=== PATIENT | female | born 2000 | race Caucasian/White ===

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

== ENCOUNTER 2021-06-10 16:27 | Inpatient (IN) | payer MEDICAID ==
[~2021-06-10] VITALS: Ht 167.6 cm; Wt 80.6 kg
[2021-06-10] VITALS (7 sets, daily range): BP systolic 103–125; BP diastolic 59–78
[~2021-06-10 16:27] MED LIST changes: +IBUP-1027 PO
[2021-06-10] MEDS ORDERED: 0.9 % SODIUM CHLORIDE 10 ML DISP.SYRIN. IV PRN (16:45)
[2021-06-10] MEDS ORDERED: LIDOCAINE 1% PF 30 ML VIAL. INJ PRN (16:45)
[2021-06-10] MEDS ORDERED: TERBUTALINE 1 MG/ML VIAL. SQ PRN (16:45)
[2021-06-10] MEDS ORDERED: IV RINGERS,LACTATED 1000ML 1,000 ML IV SCH (16:45)
[2021-06-10] MEDS ORDERED: OXYTOCIN 30 UNIT/500 ML PREMIX 500 ML IV PRN ×2 (16:45)
--- NOTE | 2021-06-10 17:05 | PDOC ---
GENERAL General: 20yrs old lady 39 weeks came by [facility] and Delivered Baby rapidly. ALLERGIES Allergies: Allergies Coded Allergies Type Severity Reaction Last Updated Verified No Known Drug Allergies 09/15/19 No ASSESSMENT & PLAN A&P 20 yrs old lady 39 weeks came by Ambulance and Delivered Baby rapidly An alive Female baby delivered with Apgars 8/9/9. No problems. Justifications for Admission Other Justification TANNER CORRAL MD Jun 10, 2021 17:05
[2021-06-10 17:15] LABS: BASO % 0 % (0-3); EOS # 0.1 x10^3/uL (0.0-0.7); EOS % 0 % (0-3); HEMATOCRIT 34.4 % (36.0-47.0); HEMOGLOBIN 11.3 g/dL (12.0-15.5); LYMPH # 2.6 x10^3/uL (1.0-4.8); LYMPH % 15 % (24-48); MEAN CORPUSCULAR HEMOGLOBIN 25 pg (25-35); MEAN CORPUSCULAR HGB CONC 33 g/dL (31-37); MEAN CORPUSCULAR VOLUME 75 fL (79-100); MONO % 6 % (0-9); NEUT # 13.8 x10^3/uL (1.8-7.7); NEUT % 79 % (31-73); PLATELET COUNT 247 x10^3/uL (140-400); RED BLOOD COUNT 4.59 x10^6/uL (3.50-5.40); RED CELL DISTRIBUTION WIDTH 17.6 % (11.5-14.5); WHITE BLOOD COUNT 17.5 x10^3/uL (4.0-11.0)
[2021-06-10] MEDS ORDERED: oxyCODONE/APAP 5/325 1 TAB TABLET PO PRN (17:15)
[2021-06-10] MEDS ORDERED: ZOLPIDEM 5 MG TABLET. PO PRN (17:15)
[2021-06-10] MEDS ORDERED: ACETAMINOPHEN 325 MG TABLET. PO PRN (17:15)
[2021-06-10] MEDS ORDERED: SIMETHICONE 80 MG TAB.CHEW PO PRN (17:15)
[2021-06-10] MEDS ORDERED: TDaP (Adacel) per PROTOCOL. MC PRN (17:15)
[2021-06-10] MEDS ORDERED: MMR per PROTOCOL. MC PRN (17:15)
[2021-06-10] MEDS ORDERED: diphenhydrAMINE HCL 25 MG CAPSULE PO PRN (17:15)
[2021-06-10] MEDS ORDERED: MAG HYDROX/ALUMINUM HYD/SIMETH 30 ML ORAL.SUSP PO PRN (17:15)
[2021-06-10] MEDS ORDERED: DOCUSATE SODIUM 100 MG CAPSULE. PO PRN (17:15)
[2021-06-10] MEDS ORDERED: PHENYLEPH/MINERAL OIL/PETROLAT RECTAL OINTMENT TUBE. RC PRN (17:15)
[2021-06-10] MEDS ORDERED: MAGNESIUM HYDROXIDE 2,400 MG/30 ML ORAL.SUSP. PO PRN (17:15)
[2021-06-10] MEDS ORDERED: PREN1TAB58 PO (17:38)
[2021-06-10] MEDS ORDERED: FERR325T14 PO (17:39)
[2021-06-10] MEDS: IBUPROFEN 400 MG TABLET. PO PRN (18:30)
--- NOTE | 2021-06-10 19:47 | OP ---
DATE OF SURGERY: 06/10/2021 DELIVERY NOTE INDICATIONS: This patient is 20 years old white female who is a 3, para 1, EDC 39 weeks' , came by ambulance to the hospital and had a precipitous delivery and a live female infant delivered at 1624 hours with good scores. The cord was clamped and cut. Placenta, spontaneous delivery at 1628 without any problem and she did have a second-degree laceration of the perineum. This was sutured with 2-0 chromic catgut sutures and estimated blood loss about 100 mL The baby appears to be doing fine and is referred to mobility scooter repairer for further care and treatment. Mother has tolerated the delivery well. No complications at this time. LORNA DR: Claudia TID: [id number]
[2021-06-10] MEDS ORDERED: BENZOCAINE 20% TOPICAL AEROSOL SPRAY 57GM CAN. TP PRN (20:45)
[2021-06-11 04:11] VITALS: BP 111/56
[2021-06-11] MEDS ORDERED: FERROUS SULFATE 325 MG TABLET. PO SCH (08:00)
[2021-06-11 08:02] VITALS: BP 116/71
[2021-06-11] MEDS: IBUPROFEN 400 MG TABLET. PO PRN ×2 (08:02→16:40)
[2021-06-11] MEDS ORDERED: FLU VACC QUAD 21-22 (6MOS+) PF 0.5 ML SYRINGE. VAX IM ONE (11:00)
[2021-06-11] MEDS ORDERED: MEASLES, MUMPS & RUBELLA VACC 0.5 ML VIAL. VAX SQ ONE (11:00)
--- NOTE | 2021-06-11 11:46 | PDOC ---
GENERAL General: Patient doing ok. No problems. VITAL SIGNS Vital Signs/I&O: Vital Signs Date Time Temp Pulse Resp B/P (MAP) Pulse Ox O2 Delivery O2 Flow Rate FiO2 06/11/21 08:02 97.9 67 20 116/71 (86) 99 97.9 06/11/21 07:50 Room Air I & O 06/10/21 06/10/21 06/11/21 14:59 22:59 06:59 Intake Total 1120 ml Balance 1120 ml ALLERGIES Allergies: Allergies Coded Allergies Type Severity Reaction Last Updated Verified rosado Allergy Severe Anaphylaxis 06/10/21 Yes rosado flavor Allergy Severe Anaphylaxis 06/10/21 Yes MEDS Medications: Current Medications Medications (Trade) Dose Ordered Sig/Esteban Route PRN Reason Start Time Stop Time Status Last Admin Dose Admin Ringer's Solution 1,000 ml @ 125 mls/hr Q8H IV 06/10/21 16:45 06/11/21 08:04 DC 06/10/21 17:34 Lidocaine HCl (Xylocaine 1% Pf 30ml Vial) 30 ml 1X PRN PRN INJ SEE COMMENTS 06/10/21 16:45 06/12/21 16:44 06/10/21 17:36 Oxytocin 500 ml @ 0 mls/hr CONT PRN IV SEE I/O RECORD 06/10/21 16:45 06/10/21 17:35 Ibuprofen (Motrin) 800 mg PRN Q6HRS PRN PO PAIN 06/10/21 16:45 06/11/21 08:02 Docusate Sodium (Colace) 100 mg PRN BID PRN PO constipation 06/10/21 17:15 06/11/21 08:02 Ferrous Sulfate (Feosol) 325 mg BIDWMEALS PO 06/11/21 08:00 06/11/21 10:46 DC 06/11/21 08:02 Oxycodone/ Acetaminophen (Percocet 5/325) 2 tab PRN Q4HRS PRN PO MODERATE PAIN, SEVERE PAIN 06/10/21 17:15 06/10/21 23:11 Measles/Mumps/ Rubella Vaccine Live (M-M-R Ii Vaccine With Diluent) 0.5 ml ONCE ONCE VAX SQ 06/11/21 11:00 06/11/21 11:01 DC 06/11/21 10:31 Influenza Virus Vaccine Quadrival (Flulaval Quad [id number] Syringe) 0.5 ml ONCE ONCE VAX IM 06/11/21 11:00 06/11/21 11:01 DC 06/11/21 10:24 LAB Lab: Laboratory Tests Test 06/10/21 16:30 06/10/21 17:46 06/11/21 07:25 White Blood Count 17.5 x10^3/uL (4.0-11.0) H Red Blood Count 4.59 x10^6/uL (3.50-5.40) Hemoglobin 11.3 g/dL (12.0-15.5) L Hematocrit 34.4 % (36.0-47.0) L 30.5 % (36.0-47.0) L Mean Corpuscular Volume 75 fL (79-100) L Mean Corpuscular Hemoglobin 25 pg (25-35) Mean Corpuscular Hemoglobin Concent 33 g/dL (31-37) Red Cell Distribution Width 17.6 % (11.5-14.5) H Platelet Count 247 x10^3/uL (140-400) Neutrophils (%) (Auto) 79 % (31-73) H Lymphocytes (%) (Auto) 15 % (24-48) L Monocytes (%) (Auto) 6 % (0-9) Eosinophils (%) (Auto) 0 % (0-3) Basophils (%) (Auto) 0 % (0-3) Neutrophils # (Auto) 13.8 x10^3/uL (1.8-7.7) H Lymphocytes # (Auto) 2.6 x10^3/uL (1.0-4.8) Monocytes # (Auto) 1.0 x10^3/uL (0.0-1.1) Eosinophils # (Auto) 0.1 x10^3/uL (0.0-0.7) Basophils # (Auto) 0.0 x10^3/uL (0.0-0.2) Treponema pallidum Antibody Nonreactive (Nonreactive) SARS-CoV-2 RNA (ALEXSANDRA) Negative (Negative) SARS-CoV-2 Antigen (Rapid) Negative (NEGATIVE) Laboratory Tests 06/10/21 16:30 06/11/21 07:25 ASSESSMENT & PLAN A&P Vital signs stable. Uterus firm. Lochia normal. Justifications for Admission Other Justification TANNER CORRAL MD Jun 11, 2021 11:46
--- NOTE | 2021-06-11 11:50 | NUR ---
Dr. Clements completed daily patient rounds and assessments. Informed MD of patients occasional cough. VOV per DR. Clements if patient desires she may have cough syrup, pt declines cough med order when offered.
[2021-06-11 12:05] VITALS: BP 109/62
[2021-06-11 16:47] VITALS: BP 114/65
[2021-06-12] MEDS: IBUPROFEN 400 MG TABLET. PO PRN ×2 (00:02→13:24)
[2021-06-12 00:04] VITALS: BP 110/75
[2021-06-12 06:04] VITALS: BP 96/52
[2021-06-12 08:54] VITALS: BP 111/70
[2021-06-12] MEDS ORDERED: DOCU-109 PO (12:15)
[2021-06-12] MEDS ORDERED: IBUP-1060 PO (12:15)
--- NOTE | 2021-06-12 13:24 | PDOC ---
LIBRARY DIRECTOR PROGRESS NOTE Date of Service: DATE: 06/12/21 TIME: 13:24 Subjective: Pt with good pain control. Larry PO. Voiding. Minimal lochia Objective: Vital Signs: Vital Signs Date Time Temp Pulse Resp B/P (MAP) Pulse Ox O2 Delivery O2 Flow Rate FiO2 06/11/21 07:50 Room Air 06/11/21 08:02 97.9 67 20 116/71 (86) 99 97.9 Vital Signs Date Time Temp Pulse Resp B/P (MAP) Pulse Ox O2 Delivery O2 Flow Rate FiO2 06/12/21 08:54 98.1 66 18 111/70 (84) Room Air 98.1 06/12/21 06:04 100 Physical Exam: GENERAL: No apparent distress. Alert and oriented. HEENT: Head normocephalic, atraumatic. NECK: Supple LUNGS: Clear to auscultation. HEART: RRR, S1, S2 present, pulses intact ABDOMEN: Soft, positive bowel sounds. EXTREMITIES: No cyanosis or edema. NEUROLOGIC: Normal speech, normal tone PSYCHIATRIC: Normal affect, normal mood. SKIN: No ulceration. FFNT below umb No C/C/E Assessment & Plan: A/P 20y PPD #2 s/p 1.) PP doing well 2.) H/o ITP - Plt nml (247) 3.) Asthma - improved control 4.) CF carrier - unknown partner CF status 5.) Anemia - Hgb 11.3 -> 10, on Fe BID 6.) Rub NI MMR given 7.) Tob use - discussed cessation 8.) TDAP given 04/03/21 9.) D/c home MATTHEW ABRAHAM MD Jun 12, 2021 13:24
--- NOTE | 2021-06-12 14:01 | DS ---
DATE OF DISCHARGE: 06/12/2021 ADMISSION DIAGNOSES: 1. Intrauterine at 39 weeks and 0 days by 23-week ultrasound. 2. Active labor. 3. Atypical pneumonia during the . 4. History of idiopathic thrombocytopenic purpura. 5. Asthma. 6. Late presentation to care. 7. Cystic fibrosis carrier. 8. Anemia. 9. Rubella nonimmune. 10. Tobacco use. 11. Status post Tdap. 12. GBS pending. DISCHARGE DIAGNOSES: 1. Intrauterine at 39 weeks and 0 days by 23-week ultrasound. 2. Active labor. 3. Atypical pneumonia during the . 4. History of idiopathic thrombocytopenic purpura. 5. Asthma. 6. Late presentation to care. 7. Cystic fibrosis carrier. 8. Anemia. 9. Rubella nonimmune. 10. Tobacco use. 11. Status post Tdap. 12. GBS pending. PROCEDURE: Spontaneous vaginal delivery. BRIEF HOSPITAL COURSE: The patient is a 20-year-old 3, para 1-0-1-1, who presented to Labor and Delivery at 39 weeks and 0 days by 23-week ultrasound in active labor. The patient was being brought in by ambulance and delivered shortly after reaching the floor. The patient did well with delivery. See delivery note for full detail. By day #2, the patient was meeting all discharge criteria and was subsequently discharged home. Of note, the patient's hemoglobin on admission was 11.3 and after delivery, was found to be 10.0. The patient was also given the MMR vaccine prior to discharge. DISCHARGE INSTRUCTIONS: The patient was told not to lift anything greater than 20 pounds, have pelvic rest for 6 weeks. CALL IF: The patient is to call if she had fevers, chills, nausea, vomiting, abdominal pain or any additional questions or concerns. FOLLOWUP APPOINTMENT: The patient is to follow up on 07/24/2021 at 1:30 p.m. in [place] for a visit. DISCHARGE MEDICATIONS: The patient was given a prescription for Motrin 800 mg, 30 pills and Colace 100 mg, [address]: Alicia TID: [id number]
--- NOTE | 2021-06-12 14:47 | NUR ---
Pt. was given verbal and written discharge instruction. Pt. verbalized understanding without any questions or concerns. Pt. verbalized understanding about follow appointment. VSS.
--- NOTE | 2021-06-19 16:52 | HP ---
ADMIT DATE: 06/10/2021 CHIEF COMPLAINT AND HISTORY OF PRESENT ILLNESS: This patient is a 20 years old white female who is a 3, para 1, EDC about 39 weeks of , admitted to the hospital because she was brought by ambulance and had a precipitous delivery in the bed in the hospital. Live female infant delivered at 1824 hours with good scores. OBJECTIVE: VITAL SIGNS: Stable. HEAD, EYES, EARS, NOSE AND THROAT: Within normal limits. LUNGS: Clear. CARDIAC: Heart sounds, regular sinus rhythm. ABDOMEN: Soft and uterus firm. The placenta has been delivered immediately right after the baby and no hemorrhage noted. EXTREMITIES: No edema of feet. IMPRESSION: 3, para 1, precipitous vaginal delivery. PLAN: Admission for further care and treatment. ESTEBAN/SAHIL DR: Claudia TID: [id number]
== END 2021-06-12 15:53 | disposition home or self-care (01) | DRG 807 ==
LOC: 3 SO LND 16:27
PROVIDERS: ADMIT Obstetrics & Gynecology; ATTEND Obstetrics & Gynecology
PROC: 10E0XZZ Delivery of Products of Conception, External Approach (ICD-10-PCS; principal; 2021-06-10)
PROC: 0KQM0ZZ Repair Perineum Muscle, Open Approach (ICD-10-PCS; 2021-06-10)
PROC: 3E0134Z Introduction of Serum, Toxoid and Vaccine into Subcutaneous Tissue, Percutaneous Approach (ICD-10-PCS; 2021-06-11)
PROC: 3E02340 Introduction of Influenza Vaccine into Muscle, Percutaneous Approach (ICD-10-PCS; 2021-06-11)
DX: O99.02 Anemia complicating childbirth (principal); Z37.0 Single live birth; O62.3 Precipitate labor; D64.9 Anemia, unspecified; Z20.822 Contact with and (suspected) exposure to COVID-19; J45.909 Unspecified asthma, uncomplicated; O99.334 Smoking (tobacco) complicating childbirth; O70.1 Second degree perineal laceration during delivery; F17.200 Nicotine dependence, unspecified, uncomplicated; Z3A.39 39 weeks gestation of pregnancy; Z23 Encounter for immunization; Z86.2 Personal history of diseases of the blood and blood-forming organs and certain disorders involving the immune mechanism; Z14.1 Cystic fibrosis carrier; Z91.018 Allergy to other foods
CPT/HCPCS: 36415; 85014; 85025; 86592; 86850; 86900; 86901; 87426; 90471; 90686; 90707; J2590; J3490; J7120; U0003; U0005; G0378